=== PATIENT | female | born 2000 | race Caucasian/White ===

== ENCOUNTER 2022-06-16 12:19 | Emergency (ER) | payer OTHER, MEDICAID, SELFPAY ==
[2022-06-16 12:23] VITALS: BP 107/67; PULSE 89; RESP 15; TEMP 36.8; O2SAT 100; BMI 17.4
[2022-06-16 12:58] LABS: Add Manual Diff / Slide Review NO; Basophils Absolute Auto 100 /uL (0-100); Basophils Percent Auto 1.4 % (0-2); Eosinophils Absolute Auto 100 /uL (0-450); Eosinophils Percent Auto 1.9 % (2-4); Hemoglobin 14.6 g/dL (12.0-16.0); Lymphocytes Absolute Auto 2400 /uL (1100-4500); Lymphocytes Percent Auto 35.1 % (25-40); Mean Corpuscular HGB Conc 35.7 % (30-36); Mean Corpuscular Hemoglobin 32.7 PG (26-34); Mean Corpuscular Volume 91.8 fL (80-100); Monocytes Absolute Auto 500 /uL (0-900); Monocytes Percent Auto 7.7 % (3-14); Neutrophils Absolute Auto 3600 /uL (1500-7000); Neutrophils Percent Auto 53.9 % (50-75); Platelet Count 342 X10^3/uL (150-400); Red Blood Cell Count 4.47 X10^6/uL (4.0-5.2); Red Cell Distribution Width 12.2 % (11.6-14.8); White Blood Cell Count 6.7 X10^3/uL (4.5-11.0)
[2022-06-16 13:10] LABS: Alanine Aminotransferase 12 IU/L (<35); Albumin 4.8 g/dL (3.5-5.0); Albumin Globulin Ratio 1.8 (1.0-2.8); Alkaline Phosphatase 41 U/L (38-126); Aspartate Aminotransferase 18 IU/L (14-36); BUN Creatinine Ratio 19.7 (6-22); Bilirubin Total 0.9 mg/dL (0.2-1.3); Blood Urea Nitrogen 15 mg/dL (7-17); Calcium 9.5 mg/dL (8.4-10.2); Carbon Dioxide 28 mmol/L (22-32); Chloride 102 mmol/L (98-107); Estimated Glomerular Filt Rate > 60 mL/min (>60); Globulin 2.7 g/dL (1.7-4.1); Glucose 93 mg/dL (70-100); HEMOLYSIS < 15 (0-50); Lipase 346 U/L (23-300); Potassium 3.7 mmol/L (3.4-5.1); Sodium 139 mmol/L (137-145); Total Protein 7.5 g/dL (6.3-8.2)
[2022-06-16 17:49] VITALS: BP 115/56; PULSE 71; RESP 16; O2SAT 100
--- NOTE | 2022-06-16 19:27 | ED_ITS ---
HPI - Abdominal Pain General Chief Complaint: Abdominal Pain Stated Complaint: ABD PAIN PAIN NAUSEA DIARRHEA UPPER BACK PAIN Time Seen by Provider: 06/16/22 18:17 Source: patient Mode of arrival: Ambulatory History of Present Illness HPI narrative: Otherwise healthy 21-year-old woman with Nexplanon in place, no significant medical history who presents with 3 days of right upper quadrant pain that seems to be present within 1-2 hours of starting work. Will typically last for a number of hours and resolve once she has gone to sleep only to recur the following day. Does not seem to be related to eating activity or position. She notes that she did just go back to work 3 days ago, does enjoy it and is excited to be back. She notes that she has been under increasing stressors over the last number of days. She comes in for further evaluation. Related Data Previous Rx's Medication Instructions Recorded hydroxyzine pamoate 25 mg capsule 25 mg PO QID PRN anxiety #20 caps 06/16/22 (Vistaril) Allergies Allergy/AdvReac Type Severity Reaction Status Date / Time codeine Allergy Verified 06/16/22 12:23 nystatin Allergy Verified 06/16/22 12:23 Review of Systems Review of Systems Narrative: Remainder of complete review of systems is otherwise unremarkable except for that included in the HPI. Patient History Social History Smoking Status: Current every day smoker Smoking Status: Current every day smoker tobacco type: vaping alcohol intake frequency: holidays/special occasions only Substance Use Type: marijuana Exam Initial Vital Signs Initial Vital Signs: Vital Signs Temperature 98.3 F 06/16/22 12:23 Pulse Rate 89 06/16/22 12:23 Respiratory Rate 15 06/16/22 12:23 Blood Pressure 107/67 06/16/22 12:23 Pulse Oximetry 100 06/16/22 12:23 Oxygen Delivery Method 06/16/22 12:23 General: Healthy appearing, in no acute distress. Able to give a complete and coherent history. Well-nourished well-developed HEENT: Moist mucous membranes, normal sclera with reactive pupils, Respiratory: Lungs are clear to auscultation, no wheezing no rales no rhonchi. Full and symmetrical air movement Cardiac: Regular rate and rhythm no murmurs no bruits Abdomen: Soft, mild tenderness in the right upper quadrant without rebound or guarding good bowel tones, no flank pain Skin: Warm and dry, no rashes Neurologic: Grossly neurologically intact with no obvious asymmetries or abnormalities Extremities: No trauma, well perfused Psych: Cooperative, appropriate insight and affect Course Orders Ordered: Discontinued Medications Hydroxyzine Pamoate (Hydroxyzine Pamoate 25 Mg Capsule) 25 mg PO NOW ONE Stop: 06/16/22 19:28 Last Admin: 06/16/22 19:44 Dose: 25 mg Documented By: ANGELA Vital Signs Vital signs: Vital Signs - 8 hr 06/16/22 12:23 06/16/22 17:49 Temperature 98.3 F Pulse Rate 89 71 Respiratory Rate 15 16 Blood Pressure 107/67 115/56 L Pulse Oximetry 100 100 Oxygen Delivery Method Room Air Room Air MDM - Abdominal Pain Lab Data Result diagrams: 06/16/22 12:51 06/16/22 12:51 Labs: Lab Results 06/16/22 06/16/22 Range/Units 12:51 12:51 WBC 6.7 (4.5-11.0) X10^3/uL RBC 4.47 (4.0-5.2) X10^6/uL Hgb 14.6 (12.0-16.0) g/dL Hct 41.0 (36-46) % MCV 91.8 (80-100) fL MCH 32.7 (26-34) PG MCHC 35.7 (30-36) % RDW 12.2 (11.6-14.8) % Plt Count 342 (150-400) X10^3/uL Neut % (Auto) 53.9 (50-75) % Lymph % (Auto) 35.1 (25-40) % Antelope % (Auto) 7.7 (3-14) % Eos % (Auto) 1.9 L (2-4) % Baso % (Auto) 1.4 (0-2) % Neut # (Auto) 3600 (9943-5698) /uL Lymph # (Auto) 2400 (0990-7142) /uL Antelope # (Auto) 500 (0-900) /uL Eos # (Auto) 100 (0-450) /uL Baso # (Auto) 100 (0-100) /uL Sodium 139 (137-145) mmol/L Potassium 3.7 (3.4-5.1) mmol/L Chloride 102 (98-107) mmol/L Carbon Dioxide 28 (22-32) mmol/L BUN 15 (7-17) mg/dL Creatinine 0.76 (0.52-1.04) mg/dL Estimated GFR > 60 (>60) mL/min BUN/Creatinine Ratio 19.7 (6-22) Glucose 93 (70-100) mg/dL Calcium 9.5 (8.4-10.2) mg/dL Total Bilirubin 0.9 (0.2-1.3) mg/dL AST 18 (14-36) IU/L ALT 12 (<35) IU/L Alkaline Phosphatase 41 (38-126) U/L Total Protein 7.5 (6.3-8.2) g/dL Albumin 4.8 (3.5-5.0) g/dL Globulin 2.7 (1.7-4.1) g/dL Albumin/Globulin Ratio 1.8 (1.0-2.8) Lipase 346 H (23-300) U/L Point of care testing: Point of Care Testing Test Results Negative Urine Dip Bedside Urine Glucose Negative Bedside Urine Bilirubin - Negative Bedside Urine Ketone - Negative Urine Specific [place] 1.015 Bedside Urine Occult Blood - Negative Bedside Urine pH 6.0 Bedside Urine Protein - Negative Bedside Urine Urobilinogen - Negative Bedside Urine Nitrite - Negative Bedside Urine Leukocytes - Negative Esterase MDM Narrative Medical decision making narrative: 21-year-old woman with 3 days of upper abdominal pain coinciding with 3 days of returning to work. She lives on [address] [place] and would like to catch the last very back to the [place] [facility]. Normal labs reviewed with her. At this point possibility of gallstones is certainly within the realm. Told her that she could choose between staying with an ultrasound performed this evening or returning to the [place] with ultrasound scheduled as an outpatient through her primary care physician. We also discussed stressors and help this may be contributing to her overall pain. At this point she does not have acute abdomen. There is no evidence of upper GI bleeding and she is safe for home discharge. She prefers discharge home rather than ultrasound ordered in the emergency department. Discharge Plan Departure Patient Disposition: Home Clinical Impression: Abdominal pain Instructions: DI for Abdominal Pain-Adult Activity Restrictions/Additional Instructions: Thank you for coming into Your blood work and your physical exam are very reassuring With the history, possibility of gallbladder/gallstone issues remains. It may also be that there is a bit of anxiety and irritable bowel component as well. Because you need to catch the fairy this evening we have decided to not order an ultrasound tonight. You do need to follow-up with your primary care doctor and that needs to be the next step in your workup. In the meantime, heating the lowest fat diet you are able to tolerate can help if this is gallbladder problems. I am also going to give you a prescription for Vistaril, a non addictive anti anxiety medication to see if that might help with the pain as well. If you find that you are getting worse or develop any new symptoms, please feel free to return to the emergency department for further evaluation. Prescriptions: New hydroxyzine pamoate [Vistaril] 25 mg capsule 25 mg PO QID PRN (Reason: anxiety) Qty: 20 0RF Visit Report Forms: Patient Portal/API
[2022-06-16] MEDS: hydrOXYzine pamoate 25 MG CAPSULE PO (19:44)
== END 2022-06-16 19:45 | disposition home or self-care (01) ==
PROVIDERS: Emergency Medicine; Emergency Provider Emergency Medicine
DX: R10.11 Right upper quadrant pain (principal)
CPT/HCPCS: 36415; 80053; 81003; 81025; 83690; 85025; 99283